=== PATIENT | female | born 1955 | race Caucasian/White ===

== ENCOUNTER → 2020-12-10 08:44 | Outpatient (BNVA) | payer SELFPAY | PROVIDERS: Family Provider Family Medicine; PCP Nurse Practitioner Family; Visit Provider Surgery | DX: K64.9 Unspecified hemorrhoids (principal); Z20.822 Contact with and (suspected) exposure to COVID-19 | CPT/HCPCS: 87635 ==

== ENCOUNTER 2020-12-14 06:58 | Day surgery (SDC) | payer SELFPAY ==
[2020-12-11 12:07] VITALS: BMI 23.3
--- NOTE | 2020-12-14 07:17 | ECG_ITS ---
[facility] ED Test Date: 2020-12-14 Pat Name: Rayna Vargas Department: Room: Gender: Female Substation Inspector: : [id number] Requested By: Reece Thakkar Order Number: [id number] Minesh MD: Lorena Mckeon M.D. Measurements Intervals [place] Rate: 96 P: 36 CA: 136 QRS: 34 QRSD: 88 T: 66 QT: 299 QTc: 378 Interpretive Statements SINUS RHYTHM POSSIBLE RIGHT VENTRICULAR CONDUCTION DELAY [RSR (QR) IN V1/V2] NONSPECIFIC T-WAVE ABNORMALITY No previous ECG available for comparison Electronically Signed On 12-20-2020 12:17:01 CDT by Lorena Mckeon M.D. [id number]
[2020-12-14 07:18] VITALS: BP 126/89; PULSE 109; RESP 18; TEMP 36.9; O2SAT 97
[2020-12-14] MEDS: sodium chloride 0.9% 1,000 ML 30 ML IV (07:33)
[2020-12-14] MEDS: acetaminophen 1,000 MG/100 ML PIGGYBACK 400 MG IV (07:36)
--- NOTE | 2020-12-14 08:46 | W.PM.OPSUD ---
Surgery/Procedure H&P Update DATE OF PROCEDURE: December 14, 2020 DATE H&P PERFORMED: 11/19/20 H&P UPDATE INFORMATION: I have reviewed H&P completed within last 30 days, I have examined patient prior to procedure and No changes to prior documentation PREOP DIAGNOSIS: Bleeding per rectum and hemorrhoids PRIMARY INDICATION FOR PROCEDURE: THE SAME PLANNED PROCEDURE: Operation Date: 12/14/20 08:40 Proposed Procedures p Colonoscopy [id number] Z12.11 K64.9(Not Applicable) - Reece Thakkar MD s Exam Under Anesthesia(Not Applicable) - Reece Thakkar MD s Hemorroidectomy(Not Applicable) - Reece Thakkar MD
--- NOTE | 2020-12-14 08:47 | ANES.PREANE2 ---
Pre-Anesthetic Assessment Pre-Anesthetic Assessment: Height/Weight: Height 1.63 m Weight 61.689 kg Temp Pulse Resp BP Pulse Ox 98.4 F 109 H 18 126/89 97 12/14/20 07:18 12/14/20 07:18 12/14/20 07:18 12/14/20 07:18 12/14/20 07:18 Preop Diagnosis: Bleeding per rectum and hemorrhoids Proposed Procedure: Operation Date: 12/14/20 08:40 Proposed Procedures p Colonoscopy [id number] Z12.11 K64.9(Not Applicable) - Reece Thakkar MD s Exam Under Anesthesia(Not Applicable) - Reece Thakkar MD s Hemorroidectomy(Not Applicable) - Reece Thakkar MD Was Beta Afshin taken within 24 hours: N/A Was Clonidine taken within 24 hours: N/A Last intake: Intake Last Liquid Date 12/13/20 Last Liquid Time 20:00 Last Solid Date 12/12/20 Last Solid Time 17:00 Social: Social History: Tobacco and No alcohol Exam: Pre-Anes Outpt Exam: alert, oriented x 3 and regular rate & rhythm Airway: Submandibular: WNL Cervical ROM: WNL MP: 2 Dentition: False Pulmonary: Pulmonary: COPD CV/HEM: CV/HEM: PVD Anesthetic Plan: ASA status: 3 Anesthesia: General Risk of > 500 ml blood loss (7ml/kg in children): No Meds/Allergies Current Medications: Current Medications Generic Name Dose Route Start Last Admin Trade Name Freq PRN Reason Stop Dose Admin Sodium Chloride 1,000 mls @ 30 ml s/hr 12/14/20 07:15 12/14/20 07:33 Sodium Chloride 0.9% IV 12/15/20 07:14 30 mls/hr .Q24H TINO Administration PFSH Anesthesia PFSH: Family History Other CAD (coronary artery disease) Cancer Hypertension Lung disease Denies family history of Diabetes Clotting disorder Dementia Hyperlipidemia Psychiatric illness Chronic kidney disease (CKD) Suicide Anesthesia complication Bleeding disorder Family history of premature coronary artery disease Stroke Social History Smoking and tobacco status: current every day smoker Alcohol intake: never Data Anesthesia Cardiac Studies: No Data to Display
[2020-12-14] MEDS: piperacillin-tazobactam 3.375 GM in sodium chloride 0.9% (plus) 50 ML IV (09:00)
--- NOTE | 2020-12-14 09:47 | P.OP_ITS ---
Operative Report Date of procedure: December 14, 2020 Pre-op Diagnosis: Bleeding per rectum and hemorrhoids Post-op diagnosis: same Procedure Done: 1-Colonoscopy. 2-Examination under anesthesia and hemorrhoidectomy 3-Bilateral pudendal nerve block Implants: Xeroform with Surgicel anal packing Specimens removed/disposition: Right lower lateral external hemorrhoid and left lower lateral external hemorrhoid Surgeon: Reece Thakkar Sewer Pipe Press Operator: senior technical specialist Zoila maldonado Med student Lynsey Bates Circualting nurse Lyric Anesthesia: General (LMA needle loom operator Damian) Estimated blood loss (mL): 5 Condition: stable Disposition: same day Brief History: Symptomatic hemorrhoids with bleeding per rectum. Full H&P and informed consent per chart Procedure: Patient was identified in the holding area and was taken back to the operating room, which was first placed in supine position got an LMA by anesthes ia, prophylactic IV antibiotics were given per protocol,Time-out was done verifying the patient's name/date of /planned procedure and destination after the procedure, all were in agreement. Patient was placed in left lateral position were all pressure points were padded, digital rectal examination was done shows no masses or blood,found to have external hemorrhoids examination was done before insertion of the colonoscopy, the scope was then introduced via the anus under direct visualization, all the way to the cecum, prep of the colon was appropriate, there were no polyps identified or masses or diverticular disease or strictures, the scope was then retrieved back ,time for withdrawal exceeded 6 minutes, CO2 gas was deflated on the way out. Retroflex was done at the end showing no a bnormalities of the anal canal. At that time after scrubbing. Prep and drape was done thereafter under the usual sterile technique,started by pudendal nerve block bilaterally , injecting Exparel 15 mL each side , guided by the examining finger towards the ischial spine bilaterally. Anoscope was then introduced I was able to identify the external right and left lower lateral hemorrhoids, I placed a wet 4 x 4 inside the anal canal to prevent stools from encroaching on the wound site, that was taken out at the end of the procedure. I did apply a hemostat at the origin of the hemorrhoidal tissue, onto the right lower lateral hemorrhoid,using harmonic scalpel device for dissection safeguarding the external anal sphincter after that I was able to deliver the specimen and passed it to the circulating nurse hemostasis was achieved , and running 2-0 chromic catgut suture was applied to approximate the edges of the hemorrhoidectomy site, following that attention was paid to the left lower lateral smaller hemorrhoid that was dissected using the harmonic scalpel and the bed of the wound was approximated also by 2-0 chromic catgut, following the thorough irrigation of the wound with warm normal saline . At that point after removal of the 4 x 4'sx1, I applied a piece of Xeroform impregnated lidocaine 2% jelly at the site of the wound and a piece of Surgicel both were rolled up as a Cigar like and and 2-0 silk stitch was applied at the end that faces the exit of the anus as it will be easier to pull out later on, followed by 4 x 4 application and ABD .,a surgical pants was then placed to hold the dressing in place. Count was completed at the end of the procedure, patient was then extubated and was taken to the recovery room in stable condition I was present for the whole entire procedure
[2020-12-14 09:56] VITALS: BP 98/72; PULSE 94; RESP 20; TEMP 36.1; O2SAT 92
[2020-12-14 10:00] VITALS: BP 116/69; PULSE 83; RESP 20; O2SAT 96
[2020-12-14 10:05] VITALS: BP 96/57; PULSE 83; RESP 17; TEMP 36.5; O2SAT 94
[2020-12-14 10:15] VITALS: BP 110/70; PULSE 90; RESP 16; TEMP 36.6; O2SAT 96
[2020-12-14 10:53] VITALS: BP 118/78; PULSE 85; RESP 18; TEMP 36.7; O2SAT 96
--- NOTE | 2020-12-14 14:53 | ANE.PACU2 ---
Inpatient post-anesthesia follow up: Airway intact: Yes Vital signs: Temperature 98.1 F Pulse Rate 85 Respiratory Rate 18 Blood Pressure 118/78 Pulse Oximetry 96 Oxygen Delivery Me thod Room Air Oxygen Flow Rate Fraction of Inspir ed Oxygen Hydration adequate: Yes Nausea and vomiting: No Pain level: 2 Mental status: Baseline
== END 2020-12-14 11:10 | disposition home or self-care (01) ==
PROVIDERS: PCP Nurse Practitioner Family; Visit Provider Surgery
PROC: 0DJD8ZZ Inspection of Lower Intestinal Tract, Via Natural or Artificial Opening Endoscopic (ICD-10-PCS; CPT 45378; principal; 2020-12-14 08:40)
PROC: (CPT 46250; 2020-12-14 08:40)
PROC: (CPT 46250; 2020-12-14 08:40)
DX: K62.5 Hemorrhage of anus and rectum (principal); K64.4 Residual hemorrhoidal skin tags; J44.9 Chronic obstructive pulmonary disease, unspecified; Z82.49 Family history of ischemic heart disease and other diseases of the circulatory system; F17.210 Nicotine dependence, cigarettes, uncomplicated
CPT/HCPCS: 46250; 45378; 88304; 93005; C9290; J1100; J2405; J2543; J2704; J3010; J3490; J7030

== ENCOUNTER → 2023-04-20 10:11 | Outpatient (BNVA) | payer MEDICARE, SELFPAY | PROVIDERS: Visit Provider Family Medicine Adult Medicine | DX: M15.9 Polyosteoarthritis, unspecified (principal); R22.9 Localized swelling, mass and lump, unspecified; Z00.00 Encounter for general adult medical examination without abnormal findings; I73.9 Peripheral vascular disease, unspecified | CPT/HCPCS: 80053; 84443; 85025; 86140; 86160; 86162; 86235; 86255; 86376; 86431 ==

== ENCOUNTER → 2023-04-21 07:07 | Outpatient (BNVA) | payer MEDICARE, SELFPAY | PROVIDERS: PCP Family Medicine Adult Medicine; Visit Provider Family Medicine Adult Medicine | DX: I73.9 Peripheral vascular disease, unspecified (principal); Z00.00 Encounter for general adult medical examination without abnormal findings; M15.9 Polyosteoarthritis, unspecified; R22.9 Localized swelling, mass and lump, unspecified; Z13.9 Encounter for screening, unspecified; M51.16 Intervertebral disc disorders with radiculopathy, lumbar region | CPT/HCPCS: 80053; 80061; 84443; 84550; 85025; 85651; 86140; 86160; 86162; 86235; 86255; 86376; 86431 ==

== ENCOUNTER → 2023-08-24 10:42 | Outpatient (BNVA) | payer MEDICARE, SELFPAY | PROVIDERS: PCP Family Medicine Adult Medicine; Visit Provider Internal Medicine Rheumatology | DX: Z79.899 Other long term (current) drug therapy (principal); Z11.59 Encounter for screening for other viral diseases; Z11.1 Encounter for screening for respiratory tuberculosis; M47.896 Other spondylosis, lumbar region; M19.042 Primary osteoarthritis, left hand; M19.041 Primary osteoarthritis, right hand; M21.072 Valgus deformity, not elsewhere classified, left ankle; M21.071 Valgus deformity, not elsewhere classified, right ankle; R76.8 Other specified abnormal immunological findings in serum | CPT/HCPCS: 36415; 72100; 73130; 73630; 80076; 82306; 82565; 85025; 86200; 86480; 86704; 86803; 87340; 99204 ==

== ENCOUNTER → 2023-12-06 11:16 | Outpatient (BNVA) | payer MEDICARE, SELFPAY | PROVIDERS: PCP Family Medicine Adult Medicine; Visit Provider Internal Medicine Rheumatology | DX: Z79.899 Other long term (current) drug therapy (principal); M19.90 Unspecified osteoarthritis, unspecified site; R76.8 Other specified abnormal immunological findings in serum; Z71.85 Encounter for immunization safety counseling; M32.9 Systemic lupus erythematosus, unspecified; M47.816 Spondylosis without myelopathy or radiculopathy, lumbar region | CPT/HCPCS: 36415; 80076; 82565; 85025; 86140; 99214 ==

== ENCOUNTER 2023-12-19 15:49 | Outpatient (CLI) | payer MEDICARE, SELFPAY ==
--- NOTE | 2023-12-19 16:00 | MR_ITS ---
WS: [id number] MRI LUMBAR SPINE NONCONTRAST TECHNIQUE: Sagittal T1, T2 and STIR imaging. Axial T1 and T2 imaging. CLINICAL INFORMATION: M54.30 - Sciatica, unspecified side COMPARISON: None. FINDINGS: Mild lumbar curve. No acute compression. Grade 1 anterolisthesis L4 on L5. Grade 1 anterolisthesis me asures 5.5 mm. L1-L2: Mild annular bulging. Mild facet arthropathy. Spinal canal and foramen are patent. L2-L3: Mild annular bulging. Endplate ridging. Mild facet arthropathy. Mild RIGHT and no significant LEFT foraminal narrowing. L3-L4: Mild annular bulging with slight effacement of ventral thecal sac. Moderate facet arthropathy. Spinal canal and foramen are patent. L4-L5: Severe central canal stenosis due to grade 1 anterolisthesis in combination with mild disc bul ging with facet arthropathy and ligamentum flavum hypertrophy. Impingement on the traversing L5 nerve roots. Mild RIGHT foraminal narrowing. L5-S1: Mild disc osteophyte ridging. Mild RIGHT and no significant LEFT foraminal narrowing. Moderate facet arthropathy. Tarlov cysts in the sacrum. Visualized pelvic bony structures: Normal. Paravertebral soft tissues: Normal. Lobulated fusiform infrarenal abdominal aortic aneurysm measuring 2.9 x 3.2 cm AP by transverse with a narrowed lumen and presumed surrounding mural thrombus. Recommend correlation with aneurysm repair. MR/MR lumbar spine wo con* [id number] IMPRESSION: 1. Mild lumbar curve. No acute compression. Grade 1 anterolisthesis L4 on L5. 2. Severe central canal stenosis L4-5 described above. 3. Mild RIGHT L4-5 and RIGHT L5-S1 foraminal narrowing. 4. Advanced facet arthropathy L4-5. 5. Lobulated fusiform infrarenal abdominal aortic aneurysm measuring 2.9 x 3.2 cm AP by transverse with a narrowed lumen and presumed surrounding mural throm bus. Recommend correlation with aneurysm repair. Recommend further evaluation w ith CTA abdomen pelvis. No prior comparisons.
== END 2023-12-19 15:50 | disposition home or self-care (01) ==
LOC: RAD 15:49
PROVIDERS: PCP Family Medicine Adult Medicine; Visit Provider Internal Medicine Rheumatology
DX: M54.30 Sciatica, unspecified side (principal); M48.061 Spinal stenosis, lumbar region without neurogenic claudication; M47.816 Spondylosis without myelopathy or radiculopathy, lumbar region
CPT/HCPCS: 72148

== ENCOUNTER → 2024-01-18 09:36 | Outpatient (BNVA) | payer MEDICARE, SELFPAY | PROVIDERS: PCP Family Medicine Adult Medicine; Visit Provider Orthopaedic Surgery | DX: M43.16 Spondylolisthesis, lumbar region | CPT/HCPCS: 72110; 99204 ==

== ENCOUNTER 2024-01-24 08:27 | Outpatient (RCR) | payer MEDICARE, SELFPAY | END 2024-02-11 23:59 | disposition home or self-care (01) | LOC: SPT 08:27 | PROVIDERS: Visit Provider Orthopaedic Surgery | DX: M54.9 Dorsalgia, unspecified (principal); G89.29 Other chronic pain | CPT/HCPCS: 97161; 97530 ==

== ENCOUNTER → 2024-05-29 11:12 | Outpatient (BNVA) | payer MEDICARE, SELFPAY | PROVIDERS: PCP Family Medicine Adult Medicine | DX: N39.0 Urinary tract infection, site not specified (principal); R39.9 Unspecified symptoms and signs involving the genitourinary system | CPT/HCPCS: 81000; 87086 ==